=== PATIENT | female | born 1980 | race Hispanic/Latino ===

== ENCOUNTER 2018-12-19 10:19 | Day surgery (SDC) | payer OTHER ==
[~2018-12-19] VITALS: Ht 162.6 cm; Wt 115.7 kg
[2018-12-19 12:00] VITALS: BP 115/77
[2018-12-19] MEDS ORDERED: LACTATED RINGERS 1000ML 1,000 ML IV ONE (12:26)
[2018-12-19] MEDS ORDERED: PROPOFOL 10 MG/ML 20ML VIAL IV ONE (13:27)
[2018-12-19 13:40] VITALS: BP 127/96
[2018-12-19 13:45] VITALS: BP 113/71
[2018-12-19 13:51] VITALS: BP 116/75
== END 2018-12-19 14:08 | disposition home or self-care (01) ==
LOC: ENDO 10:19
PROVIDERS: ATTEND Surgery
DX: K21.9 Gastro-esophageal reflux disease without esophagitis (principal); Z98.890 Other specified postprocedural states; E66.01 Morbid (severe) obesity due to excess calories; E11.9 Type 2 diabetes mellitus without complications
CPT/HCPCS: 43235; A4606 ×2; J2704; J7120